=== PATIENT | male | born 1985 | race Caucasian/White ===

== ENCOUNTER 2020-03-03 21:57 | Emergency (ER) | payer OTHER, SELFPAY ==
[2020-03-03 22:02] VITALS: BP 115/69; PULSE 55; RESP 15; TEMP 36.8; O2SAT 97
--- NOTE | 2020-03-03 22:30 | ED.SKABFB ---
HPI - Skin/Abscess/Foreign Bdy General Chief complaint: Skin/Abscess/Foreign Body Stated complaint: Abcess Time Seen by Provider: 03/03/20 22:23 Source: patient Mode of arrival: ambulatory Limitations: no limitations History of Present Illness HPI narrative: This patient is 35 year old male who presents for evaluation of possible left eye abscess. PAtient states yesterday morning he had a pustule in his left eyebrow. He busted that pustule and he has since gradually developed mild redness and swelling at the location. He states the area is becoming more painful. He is concerned he may have an abscess. He has no vomiting or fever. MD complaint: abscess/boil Related Data Allergies Allergy/AdvReac Type Severity Reaction Status Date / Time No Known Allergies Allergy Verified 03/03/20 22:36 Review of Systems Review of Systems: All systems reviewed & are unremarkable except as noted in HPI and below PMFSH Past Medical History Medical History (Updated 03/04/20 @ 00:00 by Rc [place]) H/O staphylococcal infection Surgical History Surgical History (Updated 03/03/20 @ 22:32 by Krystal Barber MD) Hx of appendectomy Social History Social History (Updated 03/03/20 @ 22:32 by Krystal Barber MD) Smoking status: Never smoker Exam Const: General: alert Orientation/consciousness: patient oriented x3 HENMT: Head: normocephalic and atraumatic Ears: external ears normal Face and sinus: face symmetric Mouth: Yes lip normal Eyes: Conjunctivae: conjunctivae normal Pupils: Equal, round and reactive pupils present EOM: EOMs intact bilaterally Other: mild tenderness and erythema, lateral eyebrow, no fluctuance. Neuro: General: patient oriented x3 and moves all extremities Psych: Mental Status: mental status grossly normal Affect: normal affect Course Reevaluation(s) Reevaluation #1: AT this time I do not believe patient has an abscess. I will treat for cellulitis. Date: 03/03/20 Time: 22:39 Vital Signs Vital signs: Vital Signs Temperature 98.2 F 03/03/20 22:02 Pulse Rate 55 L 03/03/20 22:02 Respiratory Rate 15 03/03/20 22:02 Blood Pressure 115/69 03/03/20 22:02 Pulse Oximetry 97 03/03/20 22:02 Temperature 98.2 F 03/03/20 22:02 Pulse Rate 55 L 03/03/20 22:02 Respiratory Rate 15 03/03/20 22:02 Blood Pressure 115/69 03/03/20 22:02 Pulse Oximetry 97 03/03/20 22:02 Discharge Plan Discharge Clinical Impression: Periorbital cellulitis of left eye Patient Disposition: Home, Self-Care Condition: Stable Instructions: Antibiotic Form, Cellulitis (ED), Periorbital Cellulitis in Adults (ED) Additional Instructions: Continue to apply warm compresses to your left eye for 20 minutes 4 times a day. Take antibiotics as prescribed. If swelling and redness continue to worsen after taken antibiotics for 48 hours you will need to go to ER. You may need to see an tissue inserter. Prescriptions: New sulfamethoxazole-trimethoprim [Bactrim DS] 800-160 mg tablet 1 tablet PO Q12H Qty: 20 RF: 0 amoxicillin-pot clavulanate [Augmentin] 875-125 mg tablet 1 tablet PO Q12H Qty: 14 RF: 0 ibuprofen 800 mg tablet 800 mg PO Q6H PRN (Reason: pain) Qty: 14 RF: 0 Follow-up/Referrals: [place], [Primary Care Provider] - Discharge Date/Time: 03/03/20 22:50
[2020-03-03] MEDS: AMOXICILLIN/CLAVULANATE K 875-125 MG TAB 1 TABLET PO (22:37)
== END 2020-03-03 22:50 | disposition home or self-care (01) ==
PROVIDERS: Emergency Provider General Practice
DX: H00.036 Abscess of eyelid left eye, unspecified eyelid (principal)
CPT/HCPCS: 99283; A9270